=== PATIENT | female | born 1970 | race African-American/Black ===

== ENCOUNTER 2016-11-22 16:56 | Emergency (ER) | payer OTHER ==
[~2016-11-22] VITALS: Ht 154.9 cm; Wt 98.4 kg
--- NOTE | ~2016-11-22 | CR72 ---
[facility] A Service of [facility] RADIOLOGY TEXT RESULTS PATIENT: VAL KNOX LOCATION: [facility] : 68 UNIT #: [id number] AGE: [address]: Annabelle Encinas MD SEX: F ORDER DR: [id number] [place], [place] [address] [id number] E MR#: [id number] Acc #: [id number] NAME: VAL KNOX : 1970 SEX: F STUDY DATE/TIME: 11/22/2016 18:06 UNIT: [facility] ROOM: STUDY DESCRIPTION: CR Chest Single View Portable Attending Physician: Annabelle Encinas M.D. Ordering Physician: Annabelle Encinas M.D. Primary Care Physician: No Primary Care Physician MEDICAL IMAGING REPORT This report is preliminary unless electronic signature is present EXAM Portable chest x-ray, 11/22/2016. HISTORY Chest pain. Short of air, left side chest pain began today. No injury. REPORT AP radiograph of the chest is presented. COMPARISON 12/27/2015. FINDINGS Degenerative changes in the spine. Heart upper limits of normal in size to borderline enlarged. Stable appearance. The lungs are well inflated. No acute pulmonary disease, pleural effusion or pneumothorax. No suspicious nodule. No evidence of acute infectious or inflammatory disease. IMPRESSION 1. The lungs are well inflated without evidence of acute pulmonary disease, pleural effusion or pneumothorax. No suspicious nodule. 2. Heart, upper limits of normal in size to borderline enlarged. Stable appearance. 3. Degenerative changes in the spine. No acute-appearing bony abnormality. Dictated by... Tera Shi M.D. [facility] A Service of [facility] RADIOLOGY TEXT RESULTS PATIENT: VAL KNOX LOCATION: [facility] : 68 UNIT #: [id number] AGE: [address]: Annabelle Encinas MD SEX: F ORDER DR: THIS IS AN ELECTRONICALLY VERIFIED REPORT Tera Shi M.D. at 11/23/2016 10:46 PM Tasha TD: 11/22/2016 21:14 JOB #: [id number] MEDICAL IMAGING REPORT Page 1 of 1 COPY
--- NOTE | ~2016-11-22 | CT16 ---
[facility] A Service of [facility] RADIOLOGY TEXT RESULTS PATIENT: VAL KNOX LOCATION: [facility] : 68 UNIT #: [id number] AGE: [address]: Annabelle Encinas MD SEX: F ORDER DR: [id number] [facility] [address] [place], [place] [address] [id number] E MR#: [id number] Acc #: [id number] NAME: VAL KNOX. : 1970 SEX: F STUDY DATE/TIME: 11/22/2016 20:19 UNIT: [facility] ROOM: STUDY DESCRIPTION: CT Angio Chest for PE Attending Physician: Annabelle Encinas M.D. Ordering Physician: Annabelle Encinas M.D. MEDICAL IMAGING REPORT This report is preliminary unless electronic signature is present EXAM CT scan of the chest with intravenous contrast 11/22/2016 HISTORY Shortness of breath. Right side chest and rib pain beginning today with syncope. Evaluate for pulmonary embolus. TECHNIQUE Spiral CT was performed through the chest following intravenous contrast administration using pulmonary embolus protocol. 3-D reconstructions of the chest were then performed following intravenous contrast administration. This CT exam was performed with one or more of the following radiation dose reduction techniques: automatic exposure control, adjustment of mA and/or kV according to patient size, and iterative reconstruction. FINDINGS There is no CT evidence for pulmonary embolus. Heart is normal in size. There is no significant thoracic adenopathy. There are no pleural effusions. The lungs are clear. IMPRESSION No CT evidence for pulmonary embolus. Dictated by... Keyur Leyva M.D. THIS IS AN ELECTRONICALLY VERIFIED REPORT Keyur Leyva M.D. at 11/23/2016 10:26 AM KRT/pcl [facility] A Service [facility] RADIOLOGY TEXT RESULTS PATIENT: VAL KNOX LOCATION: [facility] : 68 UNIT #: [id number] AGE: [address]: Annabelle Encinas MD SEX: F ORDER DR: TD: 11/22/2016 22:25 JOB #: [id number] MEDICAL IMAGING REPORT Page 1 of 1 COPY
--- NOTE | ~2016-11-22 | EKG ---
PATIENT: VAL KNOX UNIT #: [id number] Ventricular Rate: 89 BPM Atrial Rate: 89 BPM P-R Interval: 132 ms QRS Duration: 84 ms Q-T Interval: 390 ms QTC Calculation(Bezet): 474 ms P [place]: 53 degrees Calculated R [place]: 23 degrees Calculated T [place]: 38 degrees Diagnosis Line: Normal sinus rhythm Diagnosis Line: Normal ECG Diagnosis Line: When compared with ECG of 27-DEC-2015 08:16, Diagnosis Line: No significant change was found Diagnosis Line: Confirmed by HALEY SWEENEY MD ([id number]) on Diagnosis Line: 11/23/2016 7:31:43 AM INTERPRETING MD: PATEL LU
[~2016-11-22 16:56] MED LIST: ACETAMINOPHEN500 M2 PO; ALPRAZOLAM PO; AMOXICILLIN500 M1 PO; ATARAX PO; BENZONATATE PO; CIPRO PO; DIFLUCAN200 MG PO; DOXYCYCLINE HY100 M3 PO; DYAZIDE 37.5/251 CAP PO; IBUPROFEN PO; K-LOR20 MEQ PO; LORTAB 5/500 TA1 TA1 PO; LOW DOSE ASPIRI81 M1 PO; MILK OF MAGNESIA PO; OMEPRAZOLE20 M2 PO; PREDNISONE PO; PRILOSEC20 MG PO; PYRIDIUM PO
[2016-11-22 19:02] LABS: BASOPHIL# 0.1 X10e3 (0-0.3); BASOPHIL% 0.5 % (0-2.5); EOSINOPHIL# 0.1 X10e3 (0-0.7); EOSINOPHIL% 0.5 % (0.0-7.0); HEMATOCRIT 32.5 % (35.0-45.0); HEMOGLOBIN 10.4 gm/dL (12.0-16.0); LYMPHOCYTE# 3.3 X10e3 (1.0-3.5); LYMPHOCYTE% 22.5 % (17.0-45.0); MEAN CELL VOLUME 77.6 FL (83-96); MEAN CORPUSCULAR HEMOGLOBIN 24.7 PG (28-34); MEAN CORPUSCULAR HGB CONC 31.9 g/dL (30-36); MEAN PLATELET VOLUME 8.7 FL (6.5-11.5); MONOCYTE% 6.4 % (3.0-12.0); NEUTROPHIL# 10.4 X10e3 (1.5-7.1); NEUTROPHIL% 70.1 % (40-75); PLATELET COUNT 286 X10e3 (140-420); RED BLOOD COUNT 4.19 X10e (3.90-5.30); RED CELL DISTRIBUTION WIDTH 18.6 % (11.0-15.5); WHITE BLOOD COUNT 14.8 X10e3 (4.0-10.5)
[2016-11-22 19:03] LABS: DIFF IND NO
[2016-11-22 19:19] LABS: POC - CKMB <1.0 ng/mL (0.0-7.9); POC - TROPONIN <0.05 ng/mL (<=0.05)
[2016-11-22 19:20] LABS: INR 0.9; PARTIAL THROMBOPLASTIN TIME 24.2 SECONDS (23.5-31.3); PROTHROMBIN TIME (PATIENT) 9.6 SECONDS (10.0-11.7)
[2016-11-22 19:33] LABS: ALBUMIN SERUM 3.9 g/dL (3.5-5.0); BILIRUBIN, DIRECT 0.1 mg/dL (0.0-0.2); BILIRUBIN,TOTAL 0.1 mg/dL (0.2-2.0); CALCIUM SERUM 9.2 mg/dL (8.4-10.2); CREATININE SERUM 0.8 mg/dL (0.6-1.4); GLOM FILT RATE Estimated 101.8 mL/min (>60); POTASSIUM 3.4 mmol/L (3.5-5.1); PROTEIN TOTAL SERUM 7.3 g/dL (6.0-8.3)
[2016-11-22 21:32] LABS: POC - CKMB 1.3 ng/mL (0.0-7.9); POC - TROPONIN <0.05 ng/mL (<=0.05)
== END 2016-11-22 22:15 | disposition home or self-care (01) ==
LOC: CED 16:56
PROVIDERS: Emergency Medicine
DX: R55 Syncope and collapse (principal); M62.838 Other muscle spasm; I10 Essential (primary) hypertension; Z90.710 Acquired absence of both cervix and uterus; Z88.8 Allergy status to other drugs, medicaments and biological substances
CPT/HCPCS: 36415; 71010; 71275; 80048; 80076; 82553; 83880; 84484; 85025; 85610; 85730; 93005; 96374; 99284; J1885; Q9967